=== PATIENT | female | born 1935 | race Caucasian/White ===

== ENCOUNTER → 2018-05-03 | Outpatient (CLI) | payer MEDICARE ==
[~2018-05-03] MED LIST: AMLODIPINE BESYL5 MG PO; LOSARTAN POTAS100 MG PO; Z.0.AVAPRO300 MG; Z.0.NEXIUM20 MG
--- NOTE | 2018-05-10 03:29 | Pulmonary Function Test ---
DATE OF STUDY: PULMONARY FUNCTION REPORT Patient of Dr. Luque. Patient of Dr. Abhilash Joseph. Restrictive spirometry. Forced vital capacity 1.75 liters, 63% of predicted. FEV1 1.5 liters, 73% of predicted. FEV1/FVC ratio 86%. FEF 25-75 142%. Diffusion capacity is reduced 10.84, 48% of predicted suggesting loss of alveolar units. Lung volumes by nitrogen washout are extremely elevated 8.41, 162% of predicted. A leak is suspected. 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 Repeating lung volumes without charge is recommended. Job#: [id number]
--- NOTE | 2018-05-24 08:14 | Operative Report ---
DATE OF PROCEDURE: May 09, 2018 ADDENDUM FOLLOWUP STUDY Attempt was made to perform lung volume maneuver. The patient was unable to comply due to gagging. Job#: [id number]
== END ==
LOC: RESP 09:33
PROVIDERS: ATTEND Internal Medicine Interventional Cardiology
DX: R04.2 Hemoptysis (principal); R06.00 Dyspnea, unspecified
CPT/HCPCS: 94060; 94727; 94729